=== PATIENT | male | born 1995 | race Caucasian/White ===

== ENCOUNTER 2018-10-04 10:46 | Emergency (ER) | payer OTHER ==
[~2018-10-04] VITALS: Ht 190.5 cm; Wt 90.7 kg
[~2018-10-04 10:46] MED LIST: BACTRIM DS TAB1 EACH PO
[2018-10-04 11:25] LABS: INFLUENZA A ANTIGEN None Detected (None Detect); INFLUENZA B ANTIGEN None Detected (None Detect)
[2018-10-04 11:47] VITALS: BP 135/91
== END 2018-10-04 11:48 | disposition home or self-care (01) ==
LOC: M.ERS 10:46
PROVIDERS: Family Medicine
DX: J06.9 Acute upper respiratory infection, unspecified (principal); F17.210 Nicotine dependence, cigarettes, uncomplicated

== ENCOUNTER 2018-10-10 05:06 | Emergency (ER) | payer OTHER ==
[~2018-10-10] VITALS: Ht 190.5 cm; Wt 90.7 kg
[2018-10-10] MEDS ORDERED: BACTRIM DS TAB1 EACH PO (05:23)
[2018-10-10 05:36] VITALS: BP 139/66
== END 2018-10-10 05:36 | disposition home or self-care (01) ==
LOC: M.ERS 05:06
DX: L03.032 Cellulitis of left toe (principal); Z86.14 Personal history of Methicillin resistant Staphylococcus aureus infection; F17.210 Nicotine dependence, cigarettes, uncomplicated

== ENCOUNTER 2019-05-24 07:31 | Emergency (ER) | payer BC ==
[~2019-05-24] VITALS: Ht 190.5 cm; Wt 104.3 kg
[2019-05-24 07:55] VITALS: BP 145/79
== END 2019-05-24 07:55 | disposition home or self-care (01) ==
LOC: M.ERS 07:31
DX: J06.9 Acute upper respiratory infection, unspecified (principal); F17.210 Nicotine dependence, cigarettes, uncomplicated

== ENCOUNTER 2019-05-31 10:43 | Emergency (ER) | payer BC ==
[~2019-05-31] VITALS: Ht 190.5 cm; Wt 95.3 kg
[2019-05-31] MEDS ORDERED: TRAMADOL 50 MG50 MG PO (12:02)
[2019-05-31] MEDS ORDERED: NABUMETONE 750750 M1 PO (12:02)
[2019-05-31 12:15] VITALS: BP 121/78
== END 2019-05-31 12:15 | disposition home or self-care (01) ==
LOC: M.ERS 10:43
DX: S93.492A Sprain of other ligament of left ankle, initial encounter (principal); F17.210 Nicotine dependence, cigarettes, uncomplicated; W10.8XXA Fall (on) (from) other stairs and steps, initial encounter; Y93.89 Activity, other specified; Y92.89 Other specified places as the place of occurrence of the external cause; Y99.8 Other external cause status

== ENCOUNTER 2019-09-30 11:20 | Emergency (ER) | payer BC ==
[~2019-09-30] VITALS: Ht 190.5 cm; Wt 93.0 kg
[~2019-09-30 11:20] MED LIST changes: +NABUMETONE 750750 M1 PO; +TRAMADOL 50 MG50 MG PO
[2019-09-30] MEDS ORDERED: TYLENOL WITH CO1 TA1 PO (12:30)
[2019-09-30 12:46] VITALS: BP 138/88
== END 2019-09-30 12:46 | disposition home or self-care (01) ==
LOC: M.ERS 11:20
DX: S93.692A Other sprain of left foot, initial encounter (principal); F17.210 Nicotine dependence, cigarettes, uncomplicated; X58.XXXA Exposure to other specified factors, initial encounter; Y93.89 Activity, other specified; Y92.89 Other specified places as the place of occurrence of the external cause; Y99.8 Other external cause status